=== PATIENT | male | born 1935 | race Caucasian/White ===

== ENCOUNTER 2019-08-02 05:45 | Day surgery (SDC) | payer BC ==
[~2019-08-02] VITALS: Ht 180.3 cm; Wt 78.9 kg
[~2019-08-02 05:45] MED LIST: AMLODIPINE BES2.5 MG PO; ASPIRIN325 MG PO; CLARITIN5 MG PO; HYDROCHLOROTHIA25 MG PO; JANUMET 50-1,01 EACH PO; LIPITOR40 MG PO; LOSARTAN POTAS100 MG PO; METFORMIN HCL1000 MG PO; OMEPRAZOLE40 MG PO; XANAX0.5 MG PO
[2019-08-02] MEDS ORDERED: ATENOLOL50 MG PO (06:03)
--- NOTE | 2019-08-06 09:22 | OR ---
[facility] [address], [place] [address] Signed DATE OF OPERATION: 08/02/2019 SURGEON: Christian Simms MD PREOPERATIVE DIAGNOSES: 1. Right upper lobe lung consolidation. 2. Left lower lobe peripheral lung nodule. POSTOPERATIVE DIAGNOSES: 1. Right upper lobe lung consolidation. 2. Left lower lobe peripheral lung nodule. PROCEDURES: 1. Flexible bronchoscopy. 2. Fresh biopsies of right middle lobe subsegmental bronchi. 3. Right upper lobe distal segmental biopsies. 4. Transbronchial biopsy, subcarinal soft tissue. ANESTHESIA: General endotracheal; Christian Dobson CRNA. INDICATION: This 84-year-old white man is a patient of Russel Enriquez, and suffered from right upper lobe pneumonia for several weeks, though he did not recognize himself as a pneumonia. He began after the New Year manifest as a persistent cough. He has an episodically productive cough without any hemoptysis. Antibiotic therapy had been administered and a chest x-ray June 02 showed opacity in the right lung consistent with pneumonia. Close followup chest x-ray on June 13 confirmed persistence of the infiltrate and subsequent CT scans performed June 22, 2019 showing a probable perihilar mass on the right side as well as a separate and distinct left base of lung lesion consistent with malignancy. The patient is a former smoker, but quit approximately 30 years ago. He did undergo bronchoscopy a number years ago in the 1980s due to hemoptysis at that time. He has no family history of lung cancer. He is admitted at this time to undergo flexible bronchoscopy to assess for an endobronchial lesion accounting for his left upper lobe pneumonia and possible transbronchial biopsy of mediastinal lymph nodes. The risks of bleeding, infection, failure of diagnosis, missed diagnosis and need for other indicated procedures were reviewed with him. He understands and wished to proceed. FINDINGS: Electronically Signed By: CHRISTIAN SIMMS MD 08/06/19 0922 PATIENT NAME: CHRISTIAN REYES OPERATIVE REPORT DATE OF : 33 REPORT #: [id number] PHYSICIAN: CHRISTIAN SIMMS MD PCP: RUSSEL ENRIQUEZ PA-C REPORT IS CONFIDENTIAL AND NOT TO BE RELEASED WITHOUT AUTHORIZATION [facility] [address], [place] [address] Signed Dimensional bronchial anatomy was noted on the left and right side. The left side showed no sign of endobronchial lesion or inflammatory problem particularly. On the right side, the right upper lobe segmental bronchi were normal and passage into the distal portions of these bronchi allowed for essentially blind biopsy procuring tissue for diagnosis. The bronchus intermedius and lower lobe segmental bronchi and middle lobe bronchi had no obstructing such lesions. [place] biopsies were taken of the right middle lobe in the distal most portion and a transbronchial biopsy was obtained of the subcarinal soft tissue space. There were no complications. DESCRIPTION OF PROCEDURE: The patient was brought to the operating room, given a general endotracheal anesthetic. An adapter was applied to the endotracheal tube. An Olympus flexible bronchoscope was passed down the endotracheal tube with the video adapter. Irrigation was undertaken with some saline to free up some salivary secretions. The main nba appeared normal. The scope was passed into the left side. The main stem bronchus and upper lobe and lower lobe segmental bronchi were normal. Passage to the left upper lobe and the subsegmental bronchi was undertaken showing no endobronchial lesion or abnormality. The scope was withdrawn and passage into the lower lobe undertaken again showing no sign of endobronchial lesion. The scope was withdrawn to the main nba for reorientation and passed to the right mainstem bronchus, which was normal. The right upper lobe bronchus with three segmental bronchi appeared grossly normal without sign of endobronchial lesion. Withdrawal to the right mainstem bronchus and passage to the bronchus intermedius to allow for visualization of the right middle lobe and its two segmental bronchi and subsequently the right lower lobe segmental bronchi and the superior segmental bronchus. Passage down this segmental bronchi was undertaken showing again no sign of endobronchial lesion in the lower or middle lobes. A brush biopsy was obtained of the middle lobe bronchus segmental bronchi as there was some inflammatory change despite no endobronchial lesion. The scope was withdrawn and then passed into the superior segmental bronchus where biopsies were also obtained. The scope was withdrawn and passed to the right upper lobe bronchus allowing passage of a biopsy forceps into the each segmental bronchi as far as possible until resistance was met and biopsies were obtained. There was no bleeding. Specimens were obtained, however. The scope was withdrawn and irrigation undertaken showing no bleeding in any of the areas. The scope was reoriented to the main nba and using a transbronchial biopsy technique with a 22-gauge needle, passage into the subcarinal soft tissue was undertaken with maximal aspiration and passage as deep as possible. Withdrawal of the needle into the sheath under suction was maintained and a small amount of blood oozed up from the site. This promptly resolved. The specimen was off-loaded showing tissue had been obtained from the subcarinal space. Irrigation was undertaken and there was no sign of bleeding. All areas were suctioned free and withdrawn. The patient ultimately extubated and transferred to recovery room in good condition. Electronically Signed By: CHRISTIAN SIMMS MD 08/06/19 0922 PATIENT NAME: CHRISTIAN REYES OPERATIVE REPORT DATE OF : 34 REPORT #: [id number] PHYSICIAN: CHRISTIAN SIMMS MD PCP: RUSSEL ENRIQUEZ PA-C REPORT IS CONFIDENTIAL AND NOT TO BE RELEASED WITHOUT AUTHORIZATION [address] [place], [place] [address] Signed MD ALEX Owens/KVNG /[id number] cc: Russel Enriquez PA-C Copies: ~ Electronically Signed By: CHRISTIAN SIMMS MD 08/06/19 0922 PATIENT NAME: CHRISTIAN REYES OPERATIVE REPORT DATE OF : 34 REPORT #: [id number] PHYSICIAN: CHRISTIAN SIMMS MD PCP: RUSSEL ENRIQUEZ PA-C REPORT IS CONFIDENTIAL AND NOT TO BE RELEASED WITHOUT AUTHORIZATION
--- NOTE | 2019-08-07 16:48 | PATH ---
[facility] [address], [place] [address] Signed SPECIMEN(S): A RIGHT UPPER LOBE SUB-SEGMENTAL SPECIMEN SOURCE: A. RIGHT UPPER LOBE SUB-SEGMENTAL CLINICAL HISTORY: Pre: Malignant neoplasm of upper lobe bronchus. Post: Right upper lobe of medial lung mass with adenopathy. FINAL PATHOLOGIC DIAGNOSIS: Lung, right upper lobe sub segmental bronchus, biopsy: - Alveolated lung tissue with focal acute inflammation, see Comment. COMMENT: The clinical impression of an upper lobe bronchus mass is noted. Multiple additional sections were examined and demonstrate benign alveolated lung tissue with focal acute inflammation, suggestive of acute pneumonia. No bronchial tissue is present for evaluation. If clinically indicated, a repeat biopsy may be helpful for further evaluation. As part of [facility]' Quality Improvement Program, this case was reviewed by another member of our pathology staff. Please correlate with concurrent cytology specimens from 08/02/2019 (VN-20-8). NAL:cml:C NR MICROSCOPIC EXAMINATION: Histologic sections of all submitted blocks are examined by light microscopy. These findings, together with the gross examination, support the pathologic diagnosis. GROSS DESCRIPTION: The specimen, labeled "JZ, A," per container, "right upper lobe sub-segmental bronchus biopsy" per requisition, is received in formalin and consists of a single chiu soft tissue fragment, measuring up to 0.2 cm in greatest dimension. The specimen is entirely submitted in cassette (A1). Please note: Two additional specimens were received for cytology, a right lower lobe superior segment brushing and a subcarinal soft tissue fine-needle aspiration AT (under the direct supervision of a pathologist) The Gross Description was prepared using a voice recognition system. The report was reviewed for accuracy; however, sound-alike word errors, addition PATIENT NAME: CHRISTIAN REYES PATHOLOGY DATE OF : 34 REPORT #: [id number] PHYSICIAN: SAMANTHA BRANDT PCP: RUSSEL SMITH PA-C REPORT IS CONFIDENTIAL AND NOT TO BE RELEASED WITHOUT AUTHORIZATION [facility] [address], [place] [address] Signed and/or deletions may occur. If there is any question about this report, please contact Client Services. PERFORMING LABORATORY: The technical component was performed by [facility], [address] [place] [id number] (Pharmacy Associate: Johanny Pearl MD; CLIA# [id number]).[facility], [address] [address] (CLIA# [id number]). Diagnostician: Chula Wei MD Pathologist Electronically Signed 08/07/2019 Copies: ~ PATIENT NAME: CHRISTIAN REYES PATHOLOGY DATE OF : 34 REPORT #: [id number] PHYSICIAN: SAMANTHA PATHOLOGY PCP: RUSSEL SMITH PA-C REPORT IS CONFIDENTIAL AND NOT TO BE RELEASED WITHOUT AUTHORIZATION
== END 2019-08-02 10:47 | disposition home or self-care (01) ==
LOC: DS 05:45
PROVIDERS: Surgery
PROC: 0BBC8ZX Excision of Right Upper Lung Lobe, Via Natural or Artificial Opening Endoscopic, Diagnostic (ICD-10-PCS; 2019-08-02)
PROC: 0BD28ZX Extraction of Carina, Via Natural or Artificial Opening Endoscopic, Diagnostic (ICD-10-PCS; 2019-08-02)
PROC: 0BBD8ZX Excision of Right Middle Lung Lobe, Via Natural or Artificial Opening Endoscopic, Diagnostic (ICD-10-PCS; principal; 2019-08-02 06:45)
DX: J18.1 Lobar pneumonia, unspecified organism (principal); C34.11 Malignant neoplasm of upper lobe, right bronchus or lung; I10 Essential (primary) hypertension; I25.2 Old myocardial infarction; E11.9 Type 2 diabetes mellitus without complications; K21.0 Gastro-esophageal reflux disease with esophagitis; E78.00 Pure hypercholesterolemia, unspecified; F32.9 Major depressive disorder, single episode, unspecified; Z79.899 Other long term (current) drug therapy; Z79.84 Long term (current) use of oral hypoglycemic drugs; Z87.891 Personal history of nicotine dependence
CPT/HCPCS: 00520; J0330; J0690; J1100; J2405; J2704; J3010; J7121

== ENCOUNTER 2020-10-22 18:27 | Emergency (ER) | payer BC ==
[~2020-10-22] VITALS: Ht 180.3 cm; Wt 72.6 kg
[~2020-10-22 18:27] MED LIST changes: -AMLODIPINE BES2.5 MG PO; +ATENOLOL50 MG PO; +DEXAMETHASONE4 MG PO; -LIPITOR40 MG PO; +NORVASC5 MG PO; +ZOCOR40 MG PO; +ZOFRAN8 MG PO
--- OUTSIDE RECORDS SUMMARY | 2020-10-22 18:30 | XMS ---
PreManage Notification: CHRISTIAN REYES Security Tacking Stitch Remover Events No recent Security Events currently on file CRITERIA MET - [facility] There are no care providers on record at this time. Judy has no Care Guidelines for this patient. Ivan VISIT COUNT (12 MO.) 1 [facility] TOTAL 1 NOTE: Visits indicate total known visits. ED/UCC VISIT TRACKING (12 MO.) 10/22/2020 18:29 [facility] [place] TYPE: Emergency COMPLAINT: - FEVER INPATIENT VISIT TRACKING (12 MO.) No inpatient visits to display in this time frame [email or web address]
[2020-10-22] MEDS ORDERED: AUGMENTIN 875-1 EACH PO (21:03)
--- NOTE | 2020-10-23 12:39 | EKG ---
[facility] [facility] [address] [facility] [place], [place] [address] Signed Sinus rhythm with 1st degree AV block Nonspecific ST abnormality Abnormal ECG When compared with ECG of 30-JUL-2019 14:43, No significant change was found Confirmed by EMILY LEE DO ([id number]) on 10/23/2020 12:39:05 PM Electronically Signed By: EMILY LEE DO 10/23/20 1239 PATIENT NAME: CHRISTIAN REYES Electrocardiogram DATE OF : 34 PHYSICIAN: EMILY LEE DO REPORT #: [id number] REPORT IS CONFIDENTIAL AND NOT TO BE RELEASED WITHOUT AUTHORIZATION
== END 2020-10-22 22:01 | disposition home or self-care (01) ==
LOC: ED 18:27
DX: J18.9 Pneumonia, unspecified organism (principal); C34.90 Malignant neoplasm of unspecified part of unspecified bronchus or lung; Z20.822 Contact with and (suspected) exposure to COVID-19; I10 Essential (primary) hypertension; Z79.899 Other long term (current) drug therapy; Z79.84 Long term (current) use of oral hypoglycemic drugs
CPT/HCPCS: 71045; 80053; 81001; 83605; 85025; 87040; 93005; 93010; 96374; 96375; 99284-25; C9803; J0696; U0003

== ENCOUNTER 2020-11-25 15:55 | Emergency (ER) | payer BC ==
[~2020-11-25] VITALS: Ht 180.3 cm; Wt 68.0 kg
[~2020-11-25 15:55] MED LIST changes: +AUGMENTIN 875-1 EACH PO
--- OUTSIDE RECORDS SUMMARY | 2020-11-25 15:58 | XMS ---
Lucho Notification: CHRISTIAN REYES Security Paralegal Legal Secretary Events No recent Security Events currently on file CRITERIA MET - [employer] CARE PROVIDERS RUSSEL SMITH Physician Sap Bpc Architect 10/23/2020-Current PHONE: [phone] Judy has no Care Guidelines for this patient. [place] VISIT COUNT (12 MO.) 2 ANNABELLA Bhakta TOTAL 2 NOTE: Visits indicate total known visits. ED/UCC VISIT TRACKING (12 MO.) 11/25/2020 15:57 [facility] [place] TYPE: Emergency COMPLAINT: - SLURRED SPEECH, DISORIENTED 10/22/2020 18:29 [facility] [place] TYPE: Emergency COMPLAINT: - FEVER DIAGNOSES: - Malignant neoplasm of unspecified part of unspecified bronchus or lung - Other nursing home (current) drug therapy - Essential (primary) hypertension - Pneumonia, unspecified organism - Fever, unspecified - longterm (current) use of oral hypoglycemic drugs INPATIENT VISIT TRACKING (12 MO.) No inpatient visits to display in this time frame [email or web address]
[2020-11-25] MEDS ORDERED: JANUVIA25 MG PO (16:50)
--- NOTE | 2020-11-26 08:57 | EKG ---
[facility] [address] [facility] [place], [place] [address] Signed Sinus rhythm with 1st degree AV block Otherwise normal ECG When compared with ECG of 22-OCT-2020 19:13, No significant change was found Confirmed by EMILY LEE DO ([id number]) on 11/26/2020 8:57:45 AM Electronically Signed By: EMILY LEE DO 11/26/20 0857 PATIENT NAME: CHRISTIAN REYES Electrocardiogram DATE OF : 34 PHYSICIAN: EMILY LEE DO REPORT #: [id number] REPORT IS CONFIDENTIAL AND NOT TO BE RELEASED WITHOUT AUTHORIZATION
== END 2020-11-25 20:58 | disposition short-term general hospital (02) ==
LOC: ED 15:55
DX: I63.9 Cerebral infarction, unspecified (principal); Z20.822 Contact with and (suspected) exposure to COVID-19; E11.9 Type 2 diabetes mellitus without complications; I10 Essential (primary) hypertension; Z79.899 Other long term (current) drug therapy; Z79.84 Long term (current) use of oral hypoglycemic drugs
CPT/HCPCS: 70450; 70496; 70498; 71045; 80053; 84484; 85025; 85610; 85730; 93005; 93010; 99285-25; C9803; Q9967; U0003

== ENCOUNTER 2020-12-03 10:31 | Emergency (ER) | payer BC ==
[~2020-12-03] VITALS: Ht 180.3 cm; Wt 68.0 kg
[~2020-12-03 10:31] MED LIST changes: +JANUVIA25 MG PO
--- OUTSIDE RECORDS SUMMARY | 2020-12-03 10:34 | XMS ---
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 Ivan VISIT COUNT (12 MO.) 3 [facility] TOTAL 3 NOTE: Visits indicate total known visits. 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 [place] TYPE: Cardiology DIAGNOSES: - Cerebral infarction due to unspecified occlusion or stenosis of left middle cerebral artery - Cerebral infarction, unspecified - stroke [email or web address]
[2020-12-03] MEDS ORDERED: ATORVASTATIN CA80 MG PO (10:45)
[2020-12-03] MEDS ORDERED: LOW DOSE ASPIRI81 MG PO (10:46)
[2020-12-03] MEDS ORDERED: CLOPIDOGREL75 MG PO (10:46)
[2020-12-03] MEDS ORDERED: PANTOPRAZOLE SO40 MG PO (10:46)
[2020-12-03] MEDS ORDERED: JANUMET 50-5001 EACH PO (10:51)
[2020-12-03] MEDS ORDERED: KEYTRUDA100 MG/4 M IV (10:53)
--- NOTE | 2020-12-05 08:48 | EKG ---
[facility] [address] [facility] [place] [address] Signed Sinus rhythm with marked sinus arrhythmia Nonspecific ST abnormality Abnormal ECG When compared with ECG of 25-NOV-2020 17:52, NM interval has decreased Confirmed by GLYNN CHOW MD ([id number]) on 12/05/2020 8:48:01 AM Electronically Signed By: GLYNN CHOW MD 12/05/20 0848 PATIENT NAME: CHRISTIAN REYES Electrocardiogram DATE OF : 34 PHYSICIAN: GLYNN CHOW MD REPORT #: [id number] REPORT IS CONFIDENTIAL AND NOT TO BE RELEASED WITHOUT AUTHORIZATION
== END 2020-12-03 15:35 | disposition home or self-care (01) ==
LOC: ED 10:31
DX: R55 Syncope and collapse (principal); E86.0 Dehydration; E11.9 Type 2 diabetes mellitus without complications; I10 Essential (primary) hypertension; Z79.899 Other long term (current) drug therapy; Z79.01 Long term (current) use of anticoagulants; Z79.82 Long term (current) use of aspirin
CPT/HCPCS: 71045; 80053; 81001; 83735; 84484; 85025; 93005; 93010; 99285-25; J7030

== ENCOUNTER 2020-12-07 14:57 | Emergency (ER) | payer BC ==
[~2020-12-07] VITALS: Ht 180.3 cm; Wt 70.3 kg
[~2020-12-07 14:57] MED LIST changes: +ATORVASTATIN CA80 MG PO; +CLOPIDOGREL75 MG PO; +JANUMET 50-5001 EACH PO; +KEYTRUDA100 MG/4 M IV; +LOW DOSE ASPIRI81 MG PO; +PANTOPRAZOLE SO40 MG PO
--- OUTSIDE RECORDS SUMMARY | 2020-12-07 15:00 | XMS ---
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 Ivan VISIT COUNT (12 MO.) 4 [facility] TOTAL 4 NOTE: Visits indicate total known visits. ED/C VISIT TRACKING (12 MO.) 12/07/2020 14:58 [facility] [place] TYPE: Emergency COMPLAINT: - WEAKNESS 12/03/2020 10:32 [facility] [place] TYPE: Emergency COMPLAINT: - WEAKNESS 11/25/2020 15:57 [facility] 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 [place] TYPE: Cardiology DIAGNOSES: - Cerebral infarction due to unspecified occlusion or stenosis of left middle cerebral artery - Cerebral infarction, unspecified - stroke [email or web address]
--- NOTE | 2020-12-08 14:34 | EKG ---
[facility] [address] [facility] [place], [place] [address] Signed Normal sinus rhythm ST \T\ T wave abnormality, consider inferolateral ischemia Abnormal ECG When compared with ECG of 03-DEC-2020 10:40, ST now depressed in Anterior leads T wave inversion now evident in Inferior leads Confirmed by EMILY LEE DO ([id number]) on 12/08/2020 2:33:59 PM Electronically Signed By: EMILY LEE DO 12/08/20 1434 PATIENT NAME: CHRISTIAN REYES Electrocardiogram DATE OF : 34 PHYSICIAN: EMILY LEE DO REPORT #: [id number] REPORT IS CONFIDENTIAL AND NOT TO BE RELEASED WITHOUT AUTHORIZATION
== END 2020-12-07 19:10 | disposition short-term general hospital (02) ==
LOC: ED 14:57
DX: K92.2 Gastrointestinal hemorrhage, unspecified (principal); D64.9 Anemia, unspecified; R79.89 Other specified abnormal findings of blood chemistry; Z20.822 Contact with and (suspected) exposure to COVID-19; E11.9 Type 2 diabetes mellitus without complications; I10 Essential (primary) hypertension; Z85.118 Personal history of other malignant neoplasm of bronchus and lung; Z79.899 Other long term (current) drug therapy; Z79.84 Long term (current) use of oral hypoglycemic drugs; Z79.82 Long term (current) use of aspirin
CPT/HCPCS: 80053; 81001; 84484; 85025; 85610; 85730; 93005; 93010; 96374; 96375; 99285-25; C9113; C9803; J2405; J7040; U0003